=== PATIENT | female | born 1965 | race African-American/Black ===

== ENCOUNTER 2019-01-23 19:54 | Emergency (ER) | payer OTHER ==
[~2019-01-23] VITALS: Ht 170.2 cm; Wt 109.1 kg
[2019-01-23 19:56] VITALS: Ht 170.2 cm; Wt 109.1 kg
[2019-01-23] MEDS ORDERED: BAYER CHEWABLE81 MG PO (19:58)
[2019-01-23] MEDS ORDERED: BETAPACE 80 MG80 MG PO (19:58)
[2019-01-23] MEDS ORDERED: AVAPRO300 MG PO (19:58)
[2019-01-23 20:18] LABS: BASOPHILS 0.2 % (0-2); EOSINOPHILS 1.1 % (0-7); HEMATOCRIT 41.9 % (36.0-48.0); HEMOGLOBIN 14.6 g/dL (12-16); IMMATURE GRANULOCYTES 0.1 % (0-5); LYMPHOCYTES 21.2 % (15-50); MCH 31.1 pg (26.0-34.0); MCHC 34.8 g/dL (31.0-37.0); MCV 89.3 fL (80.0-100.0); MEAN PLATELET VOLUME 10.2 fL (7.4-10.4); MONOCYTES 7.2 % (2-11); NEUTROPHILS 70.2 % (40-80); PLATELET COUNT 330 10x3/uL (130-400); RBC 4.69 10x6/uL (4.00-5.40); RDW 13.1 % (11.5-14.5); WBC 11.7 10x3/uL (4.8-10.8)
[2019-01-23 20:45] LABS: ALBUMIN 3.6 g/dL (3.4-5.0); ALKALINE PHOSPHATASE 59 U/L (46-116); ALT (SGPT) 14 U/L (10-68); BILIRUBIN - TOTAL 0.51 mg/dL (0.2-1.3); CALC OSMOLALITY 278 mosm/kg (275-300); CALCIUM 9.3 mg/dL (8.5-10.1); CARBON DIOXIDE 23.7 mmol/L (21.0-32.0); CHLORIDE - SERUM 106 mmol/L (98-107); CREATININE - SERUM 0.9 mg/dL (0.6-1.3); GLUCOSE 119 mg/dL (74-106); PROTEIN - SERUM 7.6 g/dL (6.4-8.2); SODIUM 139 mmol/L (136-145); UREA NITROGEN 12 mg/dL (7-18); eGFR NON AFRICAN AMERICAN 69 mL/min (90-120)
[2019-01-23 21:02] LABS: CKMB 3.4 U/L (0.0-3.6); CREATINE KINASE 328 UL (21-215); MAGNESIUM - SERUM 2.2 mg/dL (1.8-2.4)
[2019-01-23 21:03] LABS: TROPONIN-I 0.492 ng/mL (0.000-0.060)
[2019-01-23 21:06] LABS: APTT 31.1 SECONDS (22.8-39.4); INR 1.11 (0.85-1.17); PROTIME 13.7 SECONDS (11.6-15.0)
[2019-01-23] MEDS ORDERED: BETAPACE 120 M120 MG PO (21:10)
[2019-01-23 21:31] VITALS: BP 128/93
== END 2019-01-23 21:32 | disposition home or self-care (01) ==
LOC: D.ER 19:54
PROVIDERS: Emergency Medicine
DX: R00.0 Tachycardia, unspecified (principal)